=== PATIENT | female | born 1985 | race Hispanic/Latino ===

== ENCOUNTER 2018-02-19 13:48 | Emergency (ER) | payer OTHER ==
[2018-02-19] MEDS ORDERED: ERYTHROMYCIN BASE 0.5% OPHTH OINT 1 GM TUBE ONE (14:10)
== END 2018-02-19 14:16 | disposition home or self-care (01) ==
LOC: EDH 13:48
DX: H00.011 Hordeolum externum right upper eyelid (principal); Z87.891 Personal history of nicotine dependence

== ENCOUNTER 2018-05-05 13:24 | Emergency (ER) | payer SELFPAY ==
[2018-05-05] MEDS ORDERED: KETOROLAC TROMETHAMINE 60 MG/2 ML VIAL ONE (14:08)
== END 2018-05-05 15:05 | disposition home or self-care (01) ==
LOC: EDH 13:24
DX: S76.012A Strain of muscle, fascia and tendon of left hip, initial encounter (principal); Z72.0 Tobacco use; X58.XXXA Exposure to other specified factors, initial encounter; Y93.89 Activity, other specified; Y92.89 Other specified places as the place of occurrence of the external cause; Y99.8 Other external cause status
CPT/HCPCS: 73552; 81025; 96372; 99284; J1885

== ENCOUNTER 2020-04-08 12:03 | Emergency (ER) | payer BC, MEDICAID ==
[2020-04-08] MEDS ORDERED: KETOROLAC TROMETHAMINE 60 MG/2 ML VIAL ONE (13:05)
[2020-04-08] MEDS ORDERED: CYCLOBENZAPRINE HCL 10 MG TABLET ONE (13:06)
[2020-04-08] MEDS ORDERED: HYDROCODONE/ACETAMINOPHEN 10/325 MG TAB ONE (13:07)
== END 2020-04-08 14:09 | disposition home or self-care (01) ==
LOC: EDH 12:03
DX: M54.5 Low back pain (principal); M54.10 Radiculopathy, site unspecified; Z72.0 Tobacco use
CPT/HCPCS: 72100; 96372; 99284; J1885

== ENCOUNTER 2021-09-30 13:22 | Emergency (ER) | payer BC, MEDICAID ==
[~2021-09-30] VITALS: Ht 152.4 cm; Wt 61.2 kg
[2021-09-30 14:01] LABS: APPEARANCE,URINE CLEAR (CLEAR); BILIRUBIN,URINE NEGATIVE (NEGATIVE); COLOR,URINE YELLOW (YELLOW); GLUCOSE, URINE (UA) 500 mg/dL (NEGATIVE); KETONES,URINE 40 mg/dL (NEGATIVE); LEUKOCYTE ESTERASE ,URINE NEGATIVE (NEGATIVE); NITRATE,URINE NEGATIVE (NEGATIVE); OCCULT BLOOD,URINE SMALL (NEGATIVE); PH,URINE 5.5 (5.0-8.0); PROTEIN,URINE NEGATIVE (NEGATIVE); UROBILINOGEN,URINE 0.2 mg/dL (0.2-1.0)
[2021-09-30] MEDS: ORPHENADRINE CITRATE 30 MG/ML ML IVP ONE (14:02)
[2021-09-30] MEDS: MORPHINE 4 MG SYG IVP ONE (14:02)
[2021-09-30] MEDS: ONDANSETRON 4MG INJ IVP ONE (14:03)
[2021-09-30 14:06] LABS: HCG,QUALITATIVE URINE NEGATIVE (NEGATIVE)
[2021-09-30 14:07] VITALS: BP 104/58
[2021-09-30 14:20] LABS: BACTERIA,URINE Few /HPF (None Seen); WBC,URINE 0-1 /HPF (0-1)
[2021-09-30] MEDS ORDERED: CYCL10TA16 PO (14:53)
[2021-09-30] MEDS ORDERED: NAPR500T6 PO (14:53)
== END 2021-09-30 15:25 | disposition home or self-care (01) ==
LOC: EDH 13:22
DX: S39.012A Strain of muscle, fascia and tendon of lower back, initial encounter (principal); X58.XXXA Exposure to other specified factors, initial encounter; Y93.89 Activity, other specified; Y92.89 Other specified places as the place of occurrence of the external cause; Y99.8 Other external cause status
CPT/HCPCS: 99284; 96374; 72131; 96375; 81001; 81025; J2405; J2270; J2360